=== PATIENT | male | born 1970 | race Hispanic/Latino ===

== ENCOUNTER 2017-09-16 15:44 | Emergency (ER) | payer MEDICARE ==
[~2017-09-16] VITALS: Ht 175.3 cm; Wt 158.3 kg
--- OUTSIDE RECORDS SUMMARY | 2017-09-16 15:47 | XMS REPORT ---
Author Author [facility] [place] Address Unknown Phone Unavailable Care Team Providers Care Industrial Training Specialist Name Role Phone Unavailable Unavailable Problems This patient has no known problems. Allergies, Adverse Reactions, Alerts This patient has no known allergies or adverse reactions. Medications This patient has no known medications. Encounters Start Date/Time End Date/Time Encounter Type Admission Type Attending [facility] Care Department Encounter ID 2017-11-21 00:00:00 2017-11-21 00:00:00 Outpatient [facility] [id number] 2017-11-01 00:00:00 2017-11-01 00:00:00 Outpatient [facility] [id number] 2017-09-29 00:00:00 2017-09-29 00:00:00 Outpatient [facility] [id number] 2017-09-21 00:00:00 2017-09-21 00:00:00 Outpatient [facility] [id number] 2017-09-20 00:00:00 2017-09-20 00:00:00 Outpatient [facility] [id number] 2017-09-20 00:00:00 2017-09-20 00:00:00 Outpatient [facility] [id number] 2017-09-06 00:00:00 2017-09-06 00:00:00 Outpatient [facility] [id number] 2017-09-05 12:31:16 2017-09-05 12:31:16 Outpatient [facility] [id number] 2017-09-05 11:42:36 2017-09-05 11:42:36 Outpatient [facility] [id number] 2017-09-05 09:53:34 2017-09-05 09:53:34 Outpatient [facility] [id number] 2017-09-01 10:43:58 2017-09-01 10:43:58 Outpatient [facility] [id number] 2017-09-01 00:00:00 2017-09-01 00:00:00 Outpatient [facility] [id number] 2017-08-30 08:14:19 2017-08-30 08:14:19 Outpatient [facility] [id number] 2017-08-29 09:42:56 2017-08-29 09:42:56 Outpatient [facility] [id number] 2017-08-29 06:49:02 2017-08-29 06:49:02 Outpatient [facility] [id number] 2017-08-23 08:26:36 2017-08-23 08:26:36 Outpatient [facility] [id number] 2017-08-23 00:00:00 2017-08-23 00:00:00 Outpatient [facility] [id number] 2017-08-22 13:53:09 2017-08-22 13:53:09 Outpatient [facility] [id number] 2017-08-18 09:52:32 2017-08-18 09:52:32 Outpatient [facility] [id number] 2017-08-18 07:21:59 2017-08-18 07:21:59 Outpatient [facility] [id number] 2017-08-18 00:00:00 2017-08-18 00:00:00 Outpatient [facility] [id number] 2017-08-01 00:00:00 2017-08-01 00:00:00 Outpatient [facility] [id number] 2017-07-19 10:15:20 2017-07-19 10:15:20 Outpatient [facility] [id number] 2017-07-19 09:47:39 2017-07-19 09:47:39 Outpatient [facility] [id number] 2017-07-19 07:47:14 2017-07-19 07:47:14 Outpatient [facility] [id number] 2017-07-13 08:40:57 2017-07-13 08:40:57 Outpatient [facility] [id number] 2017-07-04 15:17:11 2017-07-04 15:17:11 Outpatient [facility] [id number] 2017-06-28 14:41:00 2017-06-28 14:41:00 Outpatient [facility] [id number] 2017-06-28 00:00:00 2017-06-28 00:00:00 Outpatient [facility] [id number] 2017-06-02 00:00:00 2017-06-02 00:00:00 Outpatient [facility] [id number] 2017-04-11 15:54:46 2017-04-11 15:54:46 Outpatient [facility] [id number] 2017-04-06 13:45:06 2017-04-06 13:45:06 Outpatient [facility] [id number] 2017-04-05 13:20:02 2017-04-05 13:20:02 Outpatient [facility] [id number] 2017-04-04 00:00:00 2017-04-04 00:00:00 Outpatient [facility] [id number] 2017-03-22 08:01:34 2017-03-22 08:01:34 Outpatient [facility] [id number] 2017-03-08 09:26:28 2017-03-08 09:26:28 Outpatient [facility] [id number] 2017-03-08 08:13:35 2017-03-08 08:13:35 Outpatient [facility] [id number] 2017-02-28 08:47:41 2017-02-28 08:47:41 Outpatient [facility] [id number] 2017-02-17 10:35:37 2017-02-17 10:35:37 Outpatient [facility] [id number] 2017-02-17 00:00:00 2017-02-17 00:00:00 Outpatient [facility] [id number] 2017-02-02 14:48:46 2017-02-02 14:48:46 Outpatient [facility] [id number] 2017-02-02 14:07:22 2017-02-02 14:07:22 Outpatient [facility] [id number] 2017-02-02 00:00:00 2017-02-02 00:00:00 Outpatient [facility] [id number] 2017-02-02 00:00:00 2017-02-02 00:00:00 Outpatient [facility] [id number] 2017-01-25 16:37:41 2017-01-25 16:37:41 Outpatient [facility] [id number] 2017-01-11 00:00:00 2017-01-11 00:00:00 Outpatient [facility] [id number] 2017-01-06 00:00:00 2017-01-06 00:00:00 Outpatient [facility] [id number] 2016-12-08 08:41:25 2016-12-08 08:41:25 Outpatient [facility] [id number] 2016-12-08 07:48:35 2016-12-08 07:48:35 Outpatient [facility] [id number] 2016-12-08 00:00:00 2016-12-08 00:00:00 Outpatient [facility] [id number] 2016-12-07 12:43:45 2016-12-07 12:43:45 Outpatient [facility] [id number] 2016-12-07 10:50:55 2016-12-07 10:50:55 Outpatient [facility] [id number] 2016-12-07 07:53:50 2016-12-07 07:53:50 Outpatient [facility] [id number] 2016-12-07 00:00:00 2016-12-07 00:00:00 Outpatient [facility] [id number] 2016-11-09 09:10:41 2016-11-09 09:10:41 Outpatient [facility] [id number] 2016-10-26 08:54:38 2016-10-26 08:54:38 Outpatient [facility] [id number] 2016-10-26 00:00:00 2016-10-26 00:00:00 Outpatient [facility] [id number] 2016-10-05 09:35:51 2016-10-05 09:35:51 Outpatient [facility] [id number] 2016-10-05 07:49:21 2016-10-05 07:49:21 Outpatient [facility] [id number]
== END 2017-09-16 18:59 | disposition home or self-care (01) ==
LOC: FSED 15:44
DX: R10.31 Right lower quadrant pain (principal); R10.32 Left lower quadrant pain; R19.7 Diarrhea, unspecified; K52.9 Noninfective gastroenteritis and colitis, unspecified
CPT/HCPCS: 74177; 80053; 81003; 85025; 99284